=== PATIENT | female | born 1975 | race Caucasian/White ===

== ENCOUNTER 2022-04-29 15:48 | Emergency (ER) | payer MEDICAID ==
[~2022-04-29] VITALS: Ht 157.5 cm; Wt 75.0 kg
[2022-04-29] MEDS ORDERED: IBUP-2029 MT (18:42)
[2022-04-29] MEDS ORDERED: HYDROCODONE/ACETAMINOPHEN 10/325MG TABLET PO ONE (18:45)
[2022-04-29 18:54] VITALS: BP 128/77
== END 2022-04-29 19:05 | disposition home or self-care (01) ==
LOC: ER 15:48
DX: N64.4 Mastodynia (principal); L91.8 Other hypertrophic disorders of the skin
CPT/HCPCS: 99283